=== PATIENT | female | born 1955 | race Caucasian/White ===

== ENCOUNTER 2022-07-11 10:46 | Inpatient (IN) ==
[2022-07-11 10:51] VITALS: BMI 46.7
--- NOTE | 2022-07-11 11:10 | DR.GENAD ---
HPI Time Seen Time Seen by Provider: 07/11/22 11:10 PCP Primary Care Physician: SERA PEREZ Complaint/Symptoms Chief Complaint:: PT. STATES SHE FELT LIKE HER HEART WAS "FLIP FLOPPING" AND IT WOKE HER UP FROM SLEEP. PT. STATES SHE JUST DOES NOT FEEL GOOD. 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 COVID-19 Coronavirus risk:travel/contact w/high risk person: No Has patient experienced Coronavirus symptoms: No Source History Provided: Patient Mode of Arrival Mode of Arrival: Ambulatory Timing Onset of Chief Complaint: 07/11/22 PMH PMH Past Medical History: Yes Past Medical History: CHF, Hypertension and Kidney Stones Past Surgical History: Yes Surgical History: Cholecystectomy and Tonsillectomy Family History History of Family Medical Conditions: Yes Family Medical History: Diabetes Mellitus, [place], Coronary Artery Disease and Hypertension Social History Does patient currently use any type of tobacco product: Yes Have you used tobacco products in the last 12 months: Yes Type of Tobacco Use: Cigarettes Does any household member use tobacco: No Alcohol Use: None Do you use any recreational Drugs:: No Lives With: Alone Lives Where: Home Travel Risk Coronavirus risk:travel/contact w/high risk person: No Has patient experienced Coronavirus symptoms: No Infectious screening In the last 2 months have you had wt loss of >10#?: NO Have you had fever, night sweats or hemotysis?: No Have you traveled outside the country in the last 6 months?: No Isolation: Standard PE Vital Signs Vitals: Temperature 97.6 F Pulse Rate 61 Respiratory Rate 39 Blood Pressure [Left Arm] 174/77 Blood Pressure 159/67 O2 Sat by Pulse Oximetry 93 ROR Labs Reviewed Result Diagrams: 07/11/22 11:49 07/11/22 11:49 Laboratory: WBC 9.2 X10^3/uL (3.6-10.0) 07/11/22 11:49 RBC 4.45 X10^6/uL (3.5-5.4) 07/11/22 11:49 Hgb 12.9 g/dL (12.0-16.0) 07/11/22 11:49 Hct 38.7 % (36.0-47.0) 07/11/22 11:49 MCV 86.9 fL (80.0-100.0) 07/11/22 11:49 MCH 29.0 pg (27.0-34.0) 07/11/22 11:49 MCHC 33.3 g/dL (33.0-35.0) 07/11/22 11:49 RDW 18.5 % (11.6-16.5) H 07/11/22 11:49 Plt Count 244 X10^3/uL (150.0-450.0) 07/11/22 11:49 MPV 7.6 fL (7.4-11.0) 07/11/22 11:49 Neut % (Auto) 78.7 % (42.0-75.0) H 07/11/22 11:49 Lymph % (Auto) 14.3 % (21.0-51.0) L 07/11/22 11:49 [place] % (Auto) 5.6 % (0.0-13.0) 07/11/22 11:49 Eos % (Auto) 0.9 % (0.9-2.9) 07/11/22 11:49 Baso % (Auto) 0.5 % (0.2-1.0) 07/11/22 11:49 Neut # (Auto) 7.2 x10^3/uL (2.2-4.8) H 07/11/22 11:49 Lymph # (Auto) 1.3 X10^3/uL (1.3-2.9) 07/11/22 11:49 [place] # (Auto) 0.5 x10^3/uL (0.3-0.8) 07/11/22 11:49 Eos # (Auto) 0.1 x10^3/uL (0.0-0.2) 07/11/22 11:49 Baso # (Auto) 0.0 X10^3/uL (0.0-0.1) 07/11/22 11:49 Absolute Nucleated RBC 0.0 /100WBC 07/11/22 11:49 D-Dimer 0.55 ug/ml (0.0-0.57) 07/11/22 11:49 Sodium 141 mmol/L (136-145) 07/11/22 11:49 Corrected Sodium TNP 07/11/22 11:49 Potassium 4.0 mmol/L (3.5-5.1) 07/11/22 11:49 Chloride 106 mmol/L (98-107) 07/11/22 11:49 Carbon Dioxide 25.0 mmol/L (21-32) 07/11/22 11:49 BUN 10 mg/dL (7-18) 07/11/22 11:49 Creatinine 0.91 mg/dL (0.55-1.02) 07/11/22 11:49 Est GFR (MDRD) Af Amer > 60 (>60) 07/11/22 11:49 Est GFR (MDRD) Non-Af > 60 (>60) 07/11/22 11:49 Glucose 99 mg/dL (65-99) 07/11/22 11:49 Calcium 8.0 mg/dL (8.5-10.1) L 07/11/22 11:49 Corrected Calcium 8.6 mg/dL (8.5-10.1) 07/11/22 11:49 Total Bilirubin 0.40 mg/dL (0.2-1.0) 07/11/22 11:49 AST 13 Units/L (15-37) L 07/11/22 11:49 ALT 13 Units/L (12-78) 07/11/22 11:49 Alkaline Phosphatase 88 Units/L (46-116) 07/11/22 11:49 Creatine Kinase 245 Units/L (26-192) H 07/11/22 14:46 Troponin I High Sens 73.8 ng/L (4.0-60.0) H* 07/11/22 14:46 Total Protein 7.9 g/dL (6.4-8.2) 07/11/22 11:49 Albumin 3.3 g/dL (3.4-5.0) L 07/11/22 11:49 Globulin 4.6 g/dL (2.5-4.5) H 07/11/22 11:49 Albumin/Globulin Ratio 0.7 Ratio (1.1-2.1) L 07/11/22 11:49 Specimen Type Clean catch urine 07/11/22 11:05 Urine Color Yellow (YELLOW) 07/11/22 11:05 Urine Appearance Clear (CLEAR) 07/11/22 11:05 Urine pH 7.0 (5.0 - 8.0) 07/11/22 11:05 Ur Specific [place] 1.010 (1.000-1.030) 07/11/22 11:05 Urine Protein Negative (NEGATIVE) 07/11/22 11:05 Urine Glucose (UA) Negative (NEGATIVE) 07/11/22 11:05 Urine Ketones Negative (NEGATIVE) 07/11/22 11:05 Urine Blood Negative (NEGATIVE) 07/11/22 11:05 Urine Nitrite Negative (NEGATIVE) 07/11/22 11:05 Urine Bilirubin Negative (NEGATIVE) 07/11/22 11:05 Urine Urobilinogen Normal (NORMAL) 07/11/22 11:05 Ur Leukocyte Esterase 2+ (NEGATIVE) 07/11/22 11:05 Urine RBC 0-2 /HPF (0-3) 07/11/22 11:05 Urine WBC 3-5 /HPF (0-5) 07/11/22 11:05 Ur Squamous Epith Cells Rare /HPF (NEGATIVE) 07/11/22 11:05 Urine Bacteria Trace /HPF (NEGATIVE) 07/11/22 11:05 Ur Culture Indicated? No/not indicated 07/11/22 11:05 SARS-CoV-2 (PCR) Negative (NEGATIVE) 07/11/22 17:51 Influenza Type A (PCR) Negative (NEGATIVE) 07/11/22 17:51 Influenza Type B (PCR) Negative (NEGATIVE) 07/11/22 17:51 RSV (PCR) Negative (NEGATIVE) 07/11/22 17:51 Opioid Opioid Risk Tool Age (Italo box if 16-45): No History of Preadolescent Sexual Abuse: No Total: 0 Total Score Risk Category: Low Risk Copyright: Aki GATICA predicting aberrant behaviors Discharge Plan Diagnosis Discharge Problem: Elevated troponin, Atrial fibrillation, new onset, Generalized weakness Discharge Plan Patient Disposition: ADMITTED INPATIENT Condition: Stable Prescriptions: No Action clonidine HCl 0.1 mg tablet 0.1 mg PO TID PRN (Reason: hypertensive emergency) Qty: 30 0RF Rx Instructions: sbp >= 180 and/or dbp >=100 furosemide [Lasix] 40 mg Tablet 20 mg PO DAILY losartan 100 mg Tablet 100 mg PO DAILY aspirin 325 mg Tablet 325 mg PO DAILY lorazepam 0.5 mg Tablet 0.5 mg PO BID PRN (Reason: Anxiety) nifedipine 30 mg Tablet Extended Release 30 mg PO DAILY hydralazine 50 mg Tablet 50 mg PO BID guanfacine 2 mg Tablet 1 mg PO DAILY Rx Instructions: IN AM guanfacine 2 mg Tablet 2 mg PO HS carvedilol phosphate [Coreg CR] 10 mg Capsule, Er Multiphase 24 Hr 10 mg PO QAM Qty: 30 0RF Rx Instructions: must administer with a meal/food ciprofloxacin HCl [Cipro] 250 mg Tablet 250 mg PO Q12H Qty: 14 0RF Health Concerns: Post Hospitalization: new medications and changes needed to prevent readmission or further decline. Pt educated and given instructions on all concerns. Plan of Treatment: Continue with present treatment and follow up plan. Pt is to keep follow up appointment as instructed and take medications as ordered. Orders to Discharge Patient Discharge Orders: Transfer (Routine); Ordered 07/11/22 Ordered By: DRE WOOTEN Follow ups/Referrals Follow ups/Referrals: JARVIS FERNANDES [Primary Care Provider] - 3 days Instructions Stand Alone Forms: Precautions for COVID, [facility], Patient Portal, Soci al Distancing
[2022-07-11 11:32] LABS: BILIRUBIN,URINE NEGATIVE (NEGATIVE); BLOOD/HEMOGLOBIN,URINE NEGATIVE (NEGATIVE); GLUCOSE, URINE NEGATIVE (NEGATIVE); KETONES,URINE NEGATIVE (NEGATIVE); LEUKOCYTE ESTERASE ,URINE 2+ (NEGATIVE); NITRITES,URINE NEGATIVE (NEGATIVE); PROTEIN,URINE NEGATIVE (NEGATIVE); UROBILINOGEN,URINE NORMAL (NORMAL)
[2022-07-11 11:50] LABS: APPEARANCE,URINE CLEAR (CLEAR); BACTERIA,URINE TRACE /HPF (NEGATIVE); COLOR,URINE YELLOW (YELLOW); RBC,URINE 0-2 /HPF (0-3); SQUAMOUS EPITHELIAL CELL,UR RARE /HPF (NEGATIVE)
[2022-07-11 12:08] LABS: BASOPHILS % (AUTO) 0.5 % (0.2-1.0); EOSINOPHILS # (AUTO) 0.1 x10^3/uL (0.0-0.2); EOSINOPHILS % (AUTO) 0.9 % (0.9-2.9); HEMATOCRIT 38.7 % (36.0-47.0); HEMOGLOBIN 12.9 g/dL (12.0-16.0); LYMPHOCYTES # (AUTO) 1.3 X10^3/uL (1.3-2.9); LYMPHOCYTES % (AUTO) 14.3 % (21.0-51.0); MEAN CORPUSCULAR HGB CONC 33.3 g/dL (33.0-35.0); MEAN CORPUSCULAR VOLUME 86.9 fL (80.0-100.0); MEAN PLATELET VOLUME 7.6 fL (7.4-11.0); MONOCYTES # (AUTO) 0.5 x10^3/uL (0.3-0.8); MONOCYTES % (AUTO) 5.6 % (0.0-13.0); NEUTROPHILS # (AUTO) 7.2 x10^3/uL (2.2-4.8); NEUTROPHILS % (AUTO) 78.7 % (42.0-75.0); RED BLOOD COUNT 4.45 X10^6/uL (3.5-5.4); RED CELL DISTRIBUTION WIDTH 18.5 % (11.6-16.5); WHITE BLOOD COUNT 9.2 X10^3/uL (3.6-10.0)
[2022-07-11 12:32] LABS: ALANINE AMINOTRANSFERASE 13 Units/L (12-78); ALBUMIN 3.3 g/dL (3.4-5.0); ALKALINE PHOSPHATASE 88 Units/L (46-116); ASPARTATE AMINO TRANSFERASE 13 Units/L (15-37); BLOOD UREA NITROGEN 10 mg/dL (7-18); CHLORIDE 106 mmol/L (98-107); COR CA(FOR HYPOALB) 8.6 mg/dL (8.5-10.1); CREATINE KINASE 105 Units/L (26-192); CREATININE 0.91 mg/dL (0.55-1.02); SODIUM 141 mmol/L (136-145); TOTAL PROTEIN 7.9 g/dL (6.4-8.2); eGFR NON BLACK RACES > 60 (>60)
[2022-07-11] MEDS ORDERED: CATAPRES TAB 0.2 MG PO ONE (13:13)
[2022-07-11] MEDS ORDERED: CATAPRES TAB 0.2 MG ONE (13:16)
[2022-07-11] MEDS ORDERED: TYLENOL 500 MG TAB EXTRA STRENGTH PO ONE (14:05)
--- NOTE | 2022-07-11 14:45 | RAD ---
HISTORYPalpitationsSTUDYAP chestCOMPARISONDecember 2018FINDINGSCardiomegaly with clear lungs and pleural spaces. There is no evidence for pneumonia, pulmonary edema, pleural effusion or other acute process.IMPRESSIONCardiomegaly.Electronically signed by: SLY MIRANDA (Jul 11, 2022 14:44:14)
[2022-07-11] MEDS ORDERED: ATIVAN TAB 0.5 MG PO ONE (17:34)
[2022-07-11] MEDS ORDERED: ATIVAN TAB 0.5 MG ONE (17:35)
[2022-07-11] MEDS: APRESOLINE TAB 25 MG PO SCH (21:45)
[2022-07-11] MEDS: NS 1,000 ML IV 1,000 ML IV SCH (22:32)
[2022-07-12 05:38] LABS: BASOPHILS % (AUTO) 0.5 % (0.2-1.0); EOSINOPHILS # (AUTO) 0.1 x10^3/uL (0.0-0.2); EOSINOPHILS % (AUTO) 1.1 % (0.9-2.9); HEMATOCRIT 35.6 % (36.0-47.0); HEMOGLOBIN 11.9 g/dL (12.0-16.0); LYMPHOCYTES # (AUTO) 1.9 X10^3/uL (1.3-2.9); LYMPHOCYTES % (AUTO) 24.9 % (21.0-51.0); MEAN CORPUSCULAR HEMOGLOBIN 28.9 pg (27.0-34.0); MEAN CORPUSCULAR HGB CONC 33.3 g/dL (33.0-35.0); MEAN CORPUSCULAR VOLUME 86.7 fL (80.0-100.0); MEAN PLATELET VOLUME 7.8 fL (7.4-11.0); MONOCYTES # (AUTO) 0.4 x10^3/uL (0.3-0.8); MONOCYTES % (AUTO) 5.8 % (0.0-13.0); NEUTROPHILS # (AUTO) 5.2 x10^3/uL (2.2-4.8); NEUTROPHILS % (AUTO) 67.7 % (42.0-75.0); RED BLOOD COUNT 4.11 X10^6/uL (3.5-5.4); RED CELL DISTRIBUTION WIDTH 18.1 % (11.6-16.5); WHITE BLOOD COUNT 7.7 X10^3/uL (3.6-10.0)
[2022-07-12 06:04] LABS: ALANINE AMINOTRANSFERASE 10 Units/L (12-78); ALKALINE PHOSPHATASE 74 Units/L (46-116); ASPARTATE AMINO TRANSFERASE 12 Units/L (15-37); BLOOD UREA NITROGEN 11 mg/dL (7-18); CALCIUM 7.8 mg/dL (8.5-10.1); CHLORIDE 106 mmol/L (98-107); COR CA(FOR HYPOALB) 8.6 mg/dL (8.5-10.1); CREATINE KINASE 68 Units/L (26-192); CREATININE 0.79 mg/dL (0.55-1.02); MAGNESIUM 1.7 mg/dL (1.7-2.9); SODIUM 142 mmol/L (136-145); TOTAL PROTEIN 7.1 g/dL (6.4-8.2); eGFR NON BLACK RACES > 60 (>60)
[2022-07-12] MEDS ORDERED: POTASSIUM CHL 40 MEQ/NS 0.45% 500 ML IV PRN (07:07)
[2022-07-12] MEDS ORDERED: K-RIDER 10 MEQ/NS 100 ML 10 MEQ/100 ML BAG IV PRN (07:07)
[2022-07-12] MEDS ORDERED: KLOR-CON PO PRN (07:07)
[2022-07-12] MEDS ORDERED: MICRO K EXTEN CAP 10 MEQ PO PRN (07:07)
[2022-07-12] MEDS ORDERED: POTASSIUM CHL 60 MEQ/NS 0.45% 500 ML IV PRN (07:07)
[2022-07-12] MEDS ORDERED: K-DUR TAB 20 MEQ PO PRN (07:07)
[2022-07-12] MEDS ORDERED: POTASSIUM CHLORIDE LIQ 20 MEQ UDC PO PRN (07:07)
[2022-07-12] MEDS: APRESOLINE TAB 25 MG PO SCH ×2 (08:16→20:54)
[2022-07-12] MEDS: MAGNESIUM SULFATE 1 GRAM/100 mL PREMIX 1 G/100 ML BAG IV PRN ×2 (08:17→09:57)
[2022-07-12] MEDS: COZAAR PO SCH (08:17)
[2022-07-12] MEDS: ASPIRIN PO SCH (08:17)
[2022-07-12] MEDS: NS 1,000 ML IV 1,000 ML IV SCH ×2 (10:43→22:28)
--- NOTE | 2022-07-12 14:47 | DR.H&P ---
H&P - History & Physical for Day of: H&P Date: 07/11/22 - Chief Complaint Chief Complaint: HEART RACING - History of Present Illness History of Present Illness: PT IS 67 WF ER ADMISSION WITH CO WOKE UP WITH HEART PALPITAIONS AND "DID NOT FEEL RIGHT". PT HAD EKG EARLY ON ER ARRIVAL WITH AFIB WITH RVR, CONVERTING WITH SINUS RHYTHM. PT HAD ELEVATED CARDIAC ENZYMES ON ADMISSION LABS. PT DOES REPORT HX OF HYPERTENSION AND DAILY SMOKER. PT STATES SHE HAD NEVER HAD TO HAVE STRESS TEST, ECHO OR CARDIAC CATH. PT REPORTS SIMILAR EPISODE IN 2019 AFTER HAVING COVID. PT ADMITTED FOR TREATMENT AND EVALUATION OF ACUTE ILLNESS. - Past Medical History Past Medical History: Hypertension, Kidney Stones, CHF - Past Surgical History Surgical History: Cholecystectomy, CLIENT SUPPORT PROFESSIONAL Surgery, Tonsillectomy, Lithotripsy, Other - Family History Family Medical History: Diabetes Mellitus, [place], Coronary Artery Disease, Hypertension - Social History Does patient currently use any type of tobacco product: Yes Have you used tobacco products in the last 12 months: Yes Type of Tobacco Use: Cigarettes How many years tobacco product used: 43 Does any household member use tobacco: No Alcohol Use: None Drug Use: None - Medications Home Medications: amoxicillin Allergy (Verified 07/11/22 10:51) dicyclomine [From Bentyl] Allergy (Verified 07/11/22 10:51) indomethacin [From Indocin] Allergy (Verified 07/11/22 10:51) ketorolac [From Toradol] Allergy (Verified 07/11/22 10:51) - Review of Systems Constitutional: Malaise. denies: Fever Eyes: No Symptoms Reported ENT: No Symptoms Reported Respiratory: SOB with Excertion Cardiovascular: Palpitations. denies: Edema Gastrointestinal: No Symptoms Reported Genitourinary: No Symptoms Reported Musculoskeletal: No Symptoms Reported Skin: No Symptoms Reported Neurological: No Symptoms Reported - Physical Exam Vital Signs: Temperature 97.9 F Pulse Rate [Left Brachial] 60 Pulse Rate 56 Respiratory Rate 20 Blood Pressure [Left Arm] 140/81 Blood Pressure 158/74 O2 Sat by Pulse Oximetry 97 Oriented: Normal Eyes: Normal Ear: Normal Nose: Normal Throat: Normal Respiratory: Wheezes Throughout (MILD LOWER EXP WHEEZES TO BILATERAL LUNG ), RLL Diminished, LLL Diminished Cardiovascular: Normal : Normal Auscultation: Bowel Sounds: Normal Palpation: Normal Tenderness: Normal Skin: Normal Musculoskeletal: Normal Psychiatric: Normal Mood Description: Calm Speech Pattern: Clear, Appropriate - Assessment/Plan (1) Abnormal cardiac enzyme level Status: Acute Plan: ADMIT, SERIAL CE AND EKG. BP CONTROL, I &OS, CXR ON ADMISSION. VERIFY HOME MEDICATION. PRN SUPPLEMENTAL O2 (2) A-fib Qualifiers: Atrial fibrillation type: paroxysmal Qualified Code(s): I48.0 - Paroxysmal atrial fibrillation Status: Acute (3) Hypertension Qualifiers: Hypertension type: essential hypertension Qualified Code(s): I10 - Essential (primary) hypertension Status: Acute - Allergies Allergies/Adverse Reactions: Allergies Allergy/AdvReac Type Severity Reaction Status Date / Time amoxicillin Allergy Verified 07/11/22 10:51 dicyclomine [From Bentyl] Allergy Verified 07/11/22 10:51 indomethacin [From Indocin] Allergy Verified 07/11/22 10:51 ketorolac [From Toradol] Allergy Verified 07/11/22 10:51
--- NOTE | 2022-07-12 14:55 | PCM.PROG ---
Progress Note - Progress Note for Day of Date of Exam: 07/12/22 - Subjective Subjective: PT IS 67WF ER ADMISSION WITH AFIB WITH RVR, CURRENTLY IN SINUS RHYTHM AFTER SPONTANEOUSLY CONVERTING. PT HAD ELEVATED TROPONIN ENZYME LEVELS ON ADMISSION. SERIAL EKG AND CARDIAC ENZYMES OBTAINED SINCE ADMISSION WITH TRENDING DOWN TROPONIN LEVELS. PT DENIES ANY CHEST PAIN. PT DENIES ANY SOB OR PALPITAION SINCE ADMISSION FROM ER. PT BP 134/71, HR 60. NORMAL RENAL FUNCTION ON CMP. PLAN TO OBTAIN AM ECHO AND CONTINUE CE LEVELS. BP CONTROL CONTINUED. WILL OBTAIN TSH, FREET4 AND FASTING LIPID. - Past Medical Family Social History Past Med/Fam/Surg Hx: No changes since H&P Allergies: Allergies amoxicillin Allergy (Verified 07/11/22 10:51) dicyclomine [From Bentyl] Allergy (Verified 07/11/22 10:51) indomethacin [From Indocin] Allergy (Verified 07/11/22 10:51) ketorolac [From Toradol] Allergy (Verified 07/11/22 10:51) - Review of Systems ROS: No change since H&P - Vital Signs and I&O's Vital Signs: Temperature 97.9 F Pulse Rate [Left Brachial] 60 Pulse Rate 56 Respiratory Rate 20 Blood Pressure [Left Arm] 140/81 Blood Pressure 158/74 O2 Sat by Pulse Oximetry 97 Intake and Output: Intake & Output 07/10/22 07/11/22 07/12/22 07/13/22 11:59 11:59 11:59 11:59 Intake Total 751 / 751 Balance 751 / 751 - Physical Exam Oriented: Normal Eyes: Normal Ear: Normal Nose: Normal Throat: Normal Respiratory: Diminished, Wheezes Cardiovascular: Normal : Normal Auscultation: Bowel Sounds: Normal Tenderness: Normal Skin: Normal Musculoskeletal: Normal Psychiatric: Normal Mood Description: Calm Speech Pattern: Clear, Appropriate - Laboratory and Diagnostics Result Diagrams: 07/12/22 04:57 07/12/22 04:57 Labs: Laboratory WBC 7.7 X10^3/uL (3.6-10.0) 07/12/22 04:57 RBC 4.11 X10^6/uL (3.5-5.4) 07/12/22 04:57 Hgb 11.9 g/dL (12.0-16.0) L 07/12/22 04:57 Hct 35.6 % (36.0-47.0) L 07/12/22 04:57 MCV 86.7 fL (80.0-100.0) 07/12/22 04:57 MCH 28.9 pg (27.0-34.0) 07/12/22 04:57 MCHC 33.3 g/dL (33.0-35.0) 07/12/22 04:57 RDW 18.1 % (11.6-16.5) H 07/12/22 04:57 Plt Count 208 X10^3/uL (150.0-450.0) 07/12/22 04:57 MPV 7.8 fL (7.4-11.0) 07/12/22 04:57 Neut % (Auto) 67.7 % (42.0-75.0) 07/12/22 04:57 Lymph % (Auto) 24.9 % (21.0-51.0) 07/12/22 04:57 [place] % (Auto) 5.8 % (0.0-13.0) 07/12/22 04:57 Eos % (Auto) 1.1 % (0.9-2.9) 07/12/22 04:57 Baso % (Auto) 0.5 % (0.2-1.0) 07/12/22 04:57 Neut # (Auto) 5.2 x10^3/uL (2.2-4.8) H 07/12/22 04:57 Lymph # (Auto) 1.9 X10^3/uL (1.3-2.9) 07/12/22 04:57 [place] # (Auto) 0.4 x10^3/uL (0.3-0.8) 07/12/22 04:57 Eos # (Auto) 0.1 x10^3/uL (0.0-0.2) 07/12/22 04:57 Baso # (Auto) 0.0 X10^3/uL (0.0-0.1) 07/12/22 04:57 Absolute Nucleated RBC 0.0 /100WBC 07/12/22 04:57 D-Dimer 0.55 ug/ml (0.0-0.57) 07/11/22 11:49 Sodium 142 mmol/L (136-145) 07/12/22 04:57 Corrected Sodium TNP 07/12/22 04:57 Potassium 3.9 mmol/L (3.5-5.1) 07/12/22 04:57 Chloride 106 mmol/L (98-107) 07/12/22 04:57 Carbon Dioxide 27.0 mmol/L (21-32) 07/12/22 04:57 BUN 11 mg/dL (7-18) 07/12/22 04:57 Creatinine 0.79 mg/dL (0.55-1.02) 07/12/22 04:57 Est GFR (MDRD) Af Amer > 60 (>60) 07/12/22 04:57 Est GFR (MDRD) Non-Af > 60 (>60) 07/12/22 04:57 Glucose 102 mg/dL (65-99) H 07/12/22 04:57 Calcium 7.8 mg/dL (8.5-10.1) L 07/12/22 04:57 Corrected Calcium 8.6 mg/dL (8.5-10.1) 07/12/22 04:57 Magnesium 1.7 mg/dL (1.7-2.9) 07/12/22 04:57 Total Bilirubin 0.50 mg/dL (0.2-1.0) 07/12/22 04:57 AST 12 Units/L (15-37) L 07/12/22 04:57 ALT 10 Units/L (12-78) L 07/12/22 04:57 Alkaline Phosphatase 74 Units/L (46-116) 07/12/22 04:57 Creatine Kinase 68 Units/L (26-192) 07/12/22 04:57 Troponin I High Sens 70.1 ng/L (4.0-60.0) H* 07/12/22 04:57 Total Protein 7.1 g/dL (6.4-8.2) 07/12/22 04:57 Albumin 3.0 g/dL (3.4-5.0) L 07/12/22 04:57 Globulin 4.1 g/dL (2.5-4.5) 07/12/22 04:57 Albumin/Globulin Ratio 0.7 Ratio (1.1-2.1) L 07/12/22 04:57 Specimen Type Clean catch urine 07/11/22 11:05 Urine Color Yellow (YELLOW) 07/11/22 11:05 Urine Appearance Clear (CLEAR) 07/11/22 11:05 Urine pH 7.0 (5.0 - 8.0) 07/11/22 11:05 Ur Specific [place] 1.010 (1.000-1.030) 07/11/22 11:05 Urine Protein Negative (NEGATIVE) 07/11/22 11:05 Urine Glucose (UA) Negative (NEGATIVE) 07/11/22 11:05 Urine Ketones Negative (NEGATIVE) 07/11/22 11:05 Urine Blood Negative (NEGATIVE) 07/11/22 11:05 Urine Nitrite Negative (NEGATIVE) 07/11/22 11:05 Urine Bilirubin Negative (NEGATIVE) 07/11/22 11:05 Urine Urobilinogen Normal (NORMAL) 07/11/22 11:05 Ur Leukocyte Esterase 2+ (NEGATIVE) 07/11/22 11:05 Urine RBC 0-2 /HPF (0-3) 07/11/22 11:05 Urine WBC 3-5 /HPF (0-5) 07/11/22 11:05 Ur Squamous Epith Cells Rare /HPF (NEGATIVE) 07/11/22 11:05 Urine Bacteria Trace /HPF (NEGATIVE) 07/11/22 11:05 Ur Culture Indicated? No/not indicated 07/11/22 11:05 SARS-CoV-2 (PCR) Negative (NEGATIVE) 07/11/22 17:51 Influenza Type A (PCR) Negative (NEGATIVE) 07/11/22 17:51 Influenza Type B (PCR) Negative (NEGATIVE) 07/11/22 17:51 RSV (PCR) Negative (NEGATIVE) 07/11/22 17:51 - Plan (1) Abnormal cardiac enzyme level Status: Acute Plan: SERIAL CE AND EKG, AM ECHO. BP CONTROL, I &OS, CXR ON ADMISSION. VERIFY HOME MEDICATION. PRN SUPPLEMENTAL O2 (2) A-fib Status: Acute Qualifiers: Atrial fibrillation type: paroxysmal Qualified Code(s): I48.0 - Paroxysmal atrial fibrillation (3) Hypertension Status: Acute Qualifiers: Hypertension type: essential hypertension Qualified Code(s): I10 - Essential (primary) hypertension
[2022-07-12 15:18] LABS: TSH (3RD GENERATION) 3.225 uIU/mL (0.358-3.74)
[2022-07-12] MEDS ORDERED: CATAPRES TAB 0.1 MG PO ONE (18:10)
[2022-07-12] MEDS: ZOFRAN INJ 4 MG VIAL IVP PRN (18:27)
[2022-07-12] MEDS: ATIVAN TAB 0.5 MG PO PRN (20:54)
[2022-07-13 05:43] LABS: BASOPHILS % (AUTO) 0.2 % (0.2-1.0); EOSINOPHILS # (AUTO) 0.1 x10^3/uL (0.0-0.2); HEMATOCRIT 35.3 % (36.0-47.0); HEMOGLOBIN 11.7 g/dL (12.0-16.0); LYMPHOCYTES # (AUTO) 1.9 X10^3/uL (1.3-2.9); LYMPHOCYTES % (AUTO) 25.4 % (21.0-51.0); MEAN CORPUSCULAR VOLUME 87.7 fL (80.0-100.0); MEAN PLATELET VOLUME 7.7 fL (7.4-11.0); MONOCYTES # (AUTO) 0.5 x10^3/uL (0.3-0.8); MONOCYTES % (AUTO) 6.5 % (0.0-13.0); NEUTROPHILS % (AUTO) 66.9 % (42.0-75.0); RED BLOOD COUNT 4.02 X10^6/uL (3.5-5.4); RED CELL DISTRIBUTION WIDTH 18.3 % (11.6-16.5); WHITE BLOOD COUNT 7.4 X10^3/uL (3.6-10.0)
[2022-07-13 06:06] LABS: ALANINE AMINOTRANSFERASE 13 Units/L (12-78); ALKALINE PHOSPHATASE 76 Units/L (46-116); ASPARTATE AMINO TRANSFERASE 9 Units/L (15-37); BLOOD UREA NITROGEN 14 mg/dL (7-18); CALCIUM 7.9 mg/dL (8.5-10.1); CARBON DIOXIDE 28.5 mmol/L (21-32); CHLORIDE 106 mmol/L (98-107); CHOLESTEROL 124 mg/dL (0-200); COR CA(FOR HYPOALB) 8.7 mg/dL (8.5-10.1); CREATININE 0.81 mg/dL (0.55-1.02); HDL CHOLESTEROL 31 mg/dL (40-60); MAGNESIUM 1.9 mg/dL (1.7-2.9); SODIUM 140 mmol/L (136-145); TOTAL PROTEIN 7.3 g/dL (6.4-8.2); TRIGLYCERIDES 157 mg/dL (0-150); eGFR NON BLACK RACES > 60 (>60)
[2022-07-13] MEDS: MAGNESIUM SULFATE 1 GRAM/100 mL PREMIX 1 G/100 ML BAG IV PRN ×2 (06:22→08:43)
[2022-07-13] MEDS: ASPIRIN PO SCH (08:43)
[2022-07-13] MEDS: APRESOLINE TAB 25 MG PO SCH ×4 (08:43→21:22)
[2022-07-13] MEDS: COZAAR PO SCH (08:43)
[2022-07-13] MEDS ORDERED: LOVENOX INJ 40 MG SYR SC SCH (10:00)
[2022-07-13] MEDS: NS 1,000 ML IV 1,000 ML IV SCH ×2 (13:03→21:23)
--- NOTE | 2022-07-13 15:38 | PCM.PROG ---
Progress Note Progress Note for Day of Date of Exam: 07/13/22 Subjective Subjective: PT IS 67 YEAR OLD FEMALE PAST MEDICAL HISTORY OF HYPERTENSION, ANXIETY, ADMITTED FOR ATRIAL FIBRILLATION WITH RVR. THIS MORNING SHE IS FEELING BETTER. NO ACUTE EVENTS OVERNIGHT. LABS/IMAGING: WBC 7.4, HGB 11.7, PLT 198, NA 140, K 4.2, CREATININE 0.81, GLUCOSE 101, SHE DID SPONTANEIOUSLY CONVERT BACK TO SINUS RHYTHM YESTERDAY. SUSPECT SHE HAS PAROXYSMAL ATRIAL FIBRILLATION SHE STATES THIS HAS HAPPENED BEFORE IN THE PAST BUT SHE DID NOT FOLLOW UP WITH CARDIOLOGY. PT DID HAVE SLIGHT ELEVATION IN TROPONIN ENZYME LEVELS ON ADMISSION, TRENDED DOWN AND LIKELY DUE TO HEART STRAIN BUT WILL NEED FULL CARDIAC WORKUP OUTPATIENT. PT DENIES ANY CHEST PAIN, SHORTNESS OF BREATH, OR PALPITATION SINCE ADMISSION FROM ER. ECHO HAS BEEN ORDERED AND WILL BE DONE TOMORROW. WILL RESTART HOME MEDICATIONS AND ADD ELIQUIS 5MG BID. CONTINUE TO CLOSELY MONITOR AND FOLLOW UP LABS/IMAGING. Past Medical Family Social History Past Med/Fam/Surg Hx: No changes since H&P Allergies: Allergies amoxicillin Allergy (Verified 07/11/22 10:51) dicyclomine [From Bentyl] Allergy (Verified 07/11/22 10:51) indomethacin [From Indocin] Allergy (Verified 07/11/22 10:51) ketorolac [From Toradol] Allergy (Verified 07/11/22 10:51) Review of Systems ROS: No change since H&P ROS changes noted: SEE HPI Vital Signs and I&O's Vital Signs: Temperature 98.0 F Pulse Rate [Left Brachial] 60 Pulse Rate 56 Respiratory Rate 20 Blood Pressure [Right Arm] 179/70 Blood Pressure [Left Arm] 129/63 Blood Pressure 158/74 O2 Sat by Pulse Oximetry 96 Intake and Output: Intake & Output 07/10/22 07/11/22 07/12/22 07/13/22 23:59 23:59 23:59 23:59 Intake Total 2019 800 / 800 Balance 2019 800 / 800 Physical Exam Oriented: Normal Eyes: Normal Ear: Normal Nose: Normal Throat: Normal Respiratory: Diminished Cardiovascular: Normal : Normal Auscultation: Bowel Sounds: Normal Tenderness: Normal Skin: Normal Musculoskeletal: Normal Psychiatric: Normal Mood Description: Calm Speech Pattern: Clear Laboratory and Diagnostics Result Diagrams: 07/13/22 05:17 07/13/22 05:17 Labs: Laboratory WBC 7.4 X10^3/uL (3.6-10.0) 07/13/22 05:17 RBC 4.02 X10^6/uL (3.5-5.4) 07/13/22 05:17 Hgb 11.7 g/dL (12.0-16.0) L 07/13/22 05:17 Hct 35.3 % (36.0-47.0) L 07/13/22 05:17 MCV 87.7 fL (80.0-100.0) 07/13/22 05:17 MCH 29.0 pg (27.0-34.0) 07/13/22 05:17 MCHC 33.0 g/dL (33.0-35.0) 07/13/22 05:17 RDW 18.3 % (11.6-16.5) H 07/13/22 05:17 Plt Count 198 X10^3/uL (150.0-450.0) 07/13/22 05:17 MPV 7.7 fL (7.4-11.0) 07/13/22 05:17 Neut % (Auto) 66.9 % (42.0-75.0) 07/13/22 05:17 Lymph % (Auto) 25.4 % (21.0-51.0) 07/13/22 05:17 [place] % (Auto) 6.5 % (0.0-13.0) 07/13/22 05:17 Eos % (Auto) 1.0 % (0.9-2.9) 07/13/22 05:17 Baso % (Auto) 0.2 % (0.2-1.0) 07/13/22 05:17 Neut # (Auto) 5.0 x10^3/uL (2.2-4.8) H 07/13/22 05:17 Lymph # (Auto) 1.9 X10^3/uL (1.3-2.9) 07/13/22 05:17 [place] # (Auto) 0.5 x10^3/uL (0.3-0.8) 07/13/22 05:17 Eos # (Auto) 0.1 x10^3/uL (0.0-0.2) 07/13/22 05:17 Baso # (Auto) 0.0 X10^3/uL (0.0-0.1) 07/13/22 05:17 Absolute Nucleated RBC 0.1 /100WBC 07/13/22 05:17 D-Dimer 0.55 ug/ml (0.0-0.57) 07/11/22 11:49 Sodium 140 mmol/L (136-145) 07/13/22 05:17 Corrected Sodium TNP 07/13/22 05:17 Potassium 4.2 mmol/L (3.5-5.1) 07/13/22 05:17 Chloride 106 mmol/L (98-107) 07/13/22 05:17 Carbon Dioxide 28.5 mmol/L (21-32) 07/13/22 05:17 BUN 14 mg/dL (7-18) 07/13/22 05:17 Creatinine 0.81 mg/dL (0.55-1.02) 07/13/22 05:17 Est GFR (MDRD) Af Amer > 60 (>60) 07/13/22 05:17 Est GFR (MDRD) Non-Af > 60 (>60) 07/13/22 05:17 Glucose 101 mg/dL (65-99) H 07/13/22 05:17 Calcium 7.9 mg/dL (8.5-10.1) L 07/13/22 05:17 Corrected Calcium 8.7 mg/dL (8.5-10.1) 07/13/22 05:17 Magnesium 1.9 mg/dL (1.7-2.9) 07/13/22 05:17 Total Bilirubin 0.40 mg/dL (0.2-1.0) 07/13/22 05:17 AST 9 Units/L (15-37) L 07/13/22 05:17 ALT 13 Units/L (12-78) 07/13/22 05:17 Alkaline Phosphatase 76 Units/L (46-116) 07/13/22 05:17 Creatine Kinase 67 Units/L (26-192) 07/12/22 18:39 Troponin I High Sens 71.6 ng/L (4.0-60.0) H* 07/12/22 18:39 Total Protein 7.3 g/dL (6.4-8.2) 07/13/22 05:17 Albumin 3.0 g/dL (3.4-5.0) L 07/13/22 05:17 Globulin 4.3 g/dL (2.5-4.5) 07/13/22 05:17 Albumin/Globulin Ratio 0.7 Ratio (1.1-2.1) L 07/13/22 05:17 Triglycerides 157 mg/dL (0-150) H 07/13/22 05:17 Cholesterol 124 mg/dL (0-200) 07/13/22 05:17 LDL Cholesterol, Calc 62 mg/dL (0-100) 07/13/22 05:17 HDL Cholesterol 31 mg/dL (40-60) L 07/13/22 05:17 Cholesterol/HDL Ratio 4.0 (0.0-5.0) 07/13/22 05:17 Free T4 1.00 ng/dL (0.76-1.46) 07/12/22 04:57 TSH 3rd Generation 3.225 uIU/mL (0.358-3.74) 07/12/22 04:57 Specimen Type Clean catch urine 07/11/22 11:05 Urine Color Yellow (YELLOW) 07/11/22 11:05 Urine Appearance Clear (CLEAR) 07/11/22 11:05 Urine pH 7.0 (5.0 - 8.0) 07/11/22 11:05 Ur Specific [place] 1.010 (1.000-1.030) 07/11/22 11:05 Urine Protein Negative (NEGATIVE) 07/11/22 11:05 Urine Glucose (UA) Negative (NEGATIVE) 07/11/22 11:05 Urine Ketones Negative (NEGATIVE) 07/11/22 11:05 Urine Blood Negative (NEGATIVE) 07/11/22 11:05 Urine Nitrite Negative (NEGATIVE) 07/11/22 11:05 Urine Bilirubin Negative (NEGATIVE) 07/11/22 11:05 Urine Urobilinogen Normal (NORMAL) 07/11/22 11:05 Ur Leukocyte Esterase 2+ (NEGATIVE) 07/11/22 11:05 Urine RBC 0-2 /HPF (0-3) 07/11/22 11:05 Urine WBC 3-5 /HPF (0-5) 07/11/22 11:05 Ur Squamous Epith Cells Rare /HPF (NEGATIVE) 07/11/22 11:05 Urine Bacteria Trace /HPF (NEGATIVE) 07/11/22 11:05 Ur Culture Indicated? No/not indicated 07/11/22 11:05 SARS-CoV-2 (PCR) Negative (NEGATIVE) 07/11/22 17:51 Influenza Type A (PCR) Negative (NEGATIVE) 07/11/22 17:51 Influenza Type B (PCR) Negative (NEGATIVE) 07/11/22 17:51 RSV (PCR) Negative (NEGATIVE) 07/11/22 17:51 Plan (1) A-fib: Status: Acute Qualifiers: Atrial fibrillation type: paroxysmal Qualified Code(s): I48.0 - Paroxysmal atrial fibrillation Narrative Support Text: START ELIQUIS CONVERTED BACK TO NSR ECHO ORDERED (2) Abnormal cardiac enzyme level: Status: Acute (3) Hypertension: Status: Acute Qualifiers: Hypertension type: essential hypertension Qualified Code(s): I10 - Essential (primary) hypertension
[2022-07-13] MEDS ORDERED: CATAPRES TAB 0.1 MG PO ONE (17:19)
[2022-07-13] MEDS: COREG TAB 12.5 MG PO SCH (20:33)
[2022-07-13] MEDS: ATIVAN TAB 0.5 MG PO PRN (22:59)
[2022-07-14] MEDS: NS 1,000 ML IV 1,000 ML IV SCH (01:45)
[2022-07-14] MEDS: APRESOLINE TAB 25 MG PO SCH ×2 (05:15→14:30)
[2022-07-14 06:13] LABS: BASOPHILS % (AUTO) 0.3 % (0.2-1.0); EOSINOPHILS # (AUTO) 0.1 x10^3/uL (0.0-0.2); EOSINOPHILS % (AUTO) 0.8 % (0.9-2.9); HEMATOCRIT 35.2 % (36.0-47.0); HEMOGLOBIN 11.7 g/dL (12.0-16.0); LYMPHOCYTES # (AUTO) 1.6 X10^3/uL (1.3-2.9); LYMPHOCYTES % (AUTO) 22.3 % (21.0-51.0); MEAN CORPUSCULAR HEMOGLOBIN 28.9 pg (27.0-34.0); MEAN CORPUSCULAR HGB CONC 33.1 g/dL (33.0-35.0); MEAN CORPUSCULAR VOLUME 87.1 fL (80.0-100.0); MEAN PLATELET VOLUME 7.7 fL (7.4-11.0); MONOCYTES # (AUTO) 0.5 x10^3/uL (0.3-0.8); MONOCYTES % (AUTO) 6.8 % (0.0-13.0); NEUTROPHILS % (AUTO) 69.8 % (42.0-75.0); RED BLOOD COUNT 4.05 X10^6/uL (3.5-5.4); RED CELL DISTRIBUTION WIDTH 18.2 % (11.6-16.5); WHITE BLOOD COUNT 7.1 X10^3/uL (3.6-10.0)
[2022-07-14 06:35] LABS: ALANINE AMINOTRANSFERASE 14 Units/L (12-78); ALBUMIN 3.2 g/dL (3.4-5.0); ALKALINE PHOSPHATASE 78 Units/L (46-116); ASPARTATE AMINO TRANSFERASE 13 Units/L (15-37); BLOOD UREA NITROGEN 14 mg/dL (7-18); CARBON DIOXIDE 27.8 mmol/L (21-32); CHLORIDE 105 mmol/L (98-107); COR CA(FOR HYPOALB) 8.6 mg/dL (8.5-10.1); CREATININE 0.78 mg/dL (0.55-1.02); MAGNESIUM 1.8 mg/dL (1.7-2.9); SODIUM 140 mmol/L (136-145); TOTAL PROTEIN 7.5 g/dL (6.4-8.2); eGFR NON BLACK RACES > 60 (>60)
[2022-07-14] MEDS: ZOFRAN INJ 4 MG VIAL IVP PRN (07:40)
[2022-07-14] MEDS: ATIVAN TAB 0.5 MG PO PRN (08:09)
[2022-07-14] MEDS: COREG TAB 12.5 MG PO SCH (08:09)
[2022-07-14] MEDS: COZAAR PO SCH (08:10)
[2022-07-14] MEDS: MAGNESIUM SULFATE 1 GRAM/100 mL PREMIX 1 G/100 ML BAG IV PRN ×2 (08:10→09:55)
[2022-07-14] MEDS ORDERED: ELIQUIS PO SCH (09:00)
[2022-07-14] MEDS ORDERED: HEPARIN SODIUM IN D5W 25,000 UNITS/500 ML BAG IV PRN (14:29)
[2022-07-14] MEDS ORDERED: HEPARIN SODIUM INJ 5000 UNITS IVP STA (15:15)
[2022-07-14] MEDS ORDERED: APRESOLINE INJ 20 MG VIAL IVP PRN (15:50)
--- NOTE | 2022-07-14 16:14 | W.DIS.FURT ---
Summary of Discharge Discharge Summary of Date Date of Exam: 07/14/22 Admission Date Date of Admission: 07/11/22 Admission Diagnosis Patient Problems (Updated 07/12/22 @ 14:49 by HOMERO FUNEZ) A-fib (Acute) I48.91 Hypertension (Acute) I10 Elevated troponin (Acute) R77.8 Atrial fibrillation, new onset (Acute) I48.91 Generalized weakness (Acute) R53.1 Abnormal cardiac enzyme level (Acute) R74.8 Hospital Course: PT IS 67 YEAR OLD FEMALE PAST MEDICAL HISTORY OF HYPERTENSION, ANXIETY, ADMITTED FOR NEW ONSET ATRIAL FIBRILLATION WITH RVR. HER ATRIAL FIBRILLATION SPONTANEOUS CONVERTED BACK TO SINUS RHYTHM WHILE INPATIENT. HOWEVER, THIS MORNING SHE HAD EPISODE OF SHARP CHEST PAIN ALONG WITH FEW SECONDS OF VTACH THAT WAS MONITORED ON TELEMETRY THAT SPONTANEOUSLY RESOLVED. CARDIAC ENZYMES TROPONIN WAS ELEVATED AT 77 AND REPEAT SLIGHTLY TRENDING UP TO 79. PT WAS STARTED ON HEPARIN GTT. SHE CONTINUES TO COMPLAIN OF INTERMITTENT CHEST PAIN. DUE TO ANGINA AND NOW NSTEMI, PT WILL BE TRANSFERRED TO [facility] FOR HIGHER LEVEL CARE AND FURTHER CARDIAC EVALUATION AND WORKUP. Labs:Wbc 7.2, Hgb 11.7, Plt 201, Na 140, K 4.2, Creatinine 0.78, Glucose 88, Echo taken, read pending. Time spent on clinical assessment, reviewing labs and imaging, decision making, and documentation greater than 45 minutes. Vital Signs: Vital Signs (72 hours) 07/11/22 16:15 07/11/22 16:30 07/11/22 16:31 Temperature Pulse Rate 59 L 61 Pulse Rate [Left Brachial] Respiratory Rate Blood Pressure 148/72 Blood Pressure [Left Arm] Blood Pressure [Right Arm] O2 Sat by Pulse Oximetry 96 97 Oxygen Delivery Method Oxygen Flow Rate FIO2% 07/11/22 16:31 07/11/22 16:45 07/11/22 17:00 Temperature Pulse Rate 59 L 59 L 69 Pulse Rate [Left Brachial] Respiratory Rate Blood Pressure Blood Pressure [Left Arm] Blood Pressure [Right Arm] O2 Sat by Pulse Oximetry 98 97 97 Oxygen Delivery Method Oxygen Flow Rate FIO2% 07/11/22 17:01 07/11/22 17:01 07/11/22 17:15 Temperature Pulse Rate 70 68 Pulse Rate [Left Brachial] Respiratory Rate Blood Pressure 156/95 Blood Pressure [Left Arm] Blood Pressure [Right Arm] O2 Sat by Pulse Oximetry 97 96 Oxygen Delivery Method Oxygen Flow Rate FIO2% 07/11/22 17:53 07/11/22 17:54 07/11/22 17:54 Temperature Pulse Rate 64 61 Pulse Rate [Left Brachial] Respiratory Rate 23 12 Blood Pressure 190/88 Blood Pressure [Left Arm] Blood Pressure [Right Arm] O2 Sat by Pulse Oximetry 96 97 Oxygen Delivery Method Oxygen Flow Rate FIO2% 07/11/22 18:00 07/11/22 18:01 07/11/22 18:01 Temperature Pulse Rate 64 65 Pulse Rate [Left Brachial] Respiratory Rate 24 24 Blood Pressure 172/80 Blood Pressure [Left Arm] Blood Pressure [Right Arm] O2 Sat by Pulse Oximetry 97 97 Oxygen Delivery Method Oxygen Flow Rate FIO2% 07/11/22 18:15 07/11/22 18:30 07/11/22 18:31 Temperature Pulse Rate 65 62 Pulse Rate [Left Brachial] Respiratory Rate 19 18 Blood Pressure 136/62 Blood Pressure [Left Arm] Blood Pressure [Right Arm] O2 Sat by Pulse Oximetry 95 Oxygen Delivery Method Oxygen Flow Rate FIO2% 07/11/22 18:31 07/11/22 18:45 07/11/22 19:00 Temperature Pulse Rate 60 64 65 Pulse Rate [Left Brachial] Respiratory Rate 20 21 44 H Blood Pressure Blood Pressure [Left Arm] Blood Pressure [Right Arm] O2 Sat by Pulse Oximetry 93 L 94 L Oxygen Delivery Method Oxygen Flow Rate FIO2% 07/11/22 19:01 07/11/22 19:01 07/11/22 19:15 Temperature Pulse Rate 61 62 Pulse Rate [Left Brachial] Respiratory Rate 39 H 34 H Blood Pressure 159/67 Blood Pressure [Left Arm] Blood Pressure [Right Arm] O2 Sat by Pulse Oximetry 93 L 95 Oxygen Delivery Method Oxygen Flow Rate FIO2% 07/11/22 19:30 07/11/22 21:00 07/11/22 19:31 Temperature Pulse Rate 60 Pulse Rate [Left Brachial] Respiratory Rate 19 Blood Pressure 156/70 Blood Pressure [Left Arm] Blood Pressure [Right Arm] O2 Sat by Pulse Oximetry 95 95 Oxygen Delivery Method Oxygen Flow Rate FIO2% 07/11/22 19:31 07/11/22 19:45 07/11/22 20:00 Temperature Pulse Rate 61 61 61 Pulse Rate [Left Brachial] Respiratory Rate 22 47 H 17 Blood Pressure Blood Pressure [Left Arm] Blood Pressure [Right Arm] O2 Sat by Pulse Oximetry 95 96 96 Oxygen Delivery Method Oxygen Flow Rate FIO2% 07/11/22 20:01 07/11/22 20:01 07/11/22 20:15 Temperature Pulse Rate 63 59 L Pulse Rate [Left Brachial] Respiratory Rate 19 20 Blood Pressure 159/94 Blood Pressure [Left Arm] Blood Pressure [Right Arm] O2 Sat by Pulse Oximetry 95 93 L Oxygen Delivery Method Oxygen Flow Rate FIO2% 07/11/22 20:30 07/11/22 20:31 07/11/22 20:31 Temperature Pulse Rate 60 60 Pulse Rate [Left Brachial] Respiratory Rate 18 20 Blood Pressure 158/74 Blood Pressure [Left Arm] Blood Pressure [Right Arm] O2 Sat by Pulse Oximetry 93 L 94 L Oxygen Delivery Method Oxygen Flow Rate FIO2% 07/11/22 20:45 07/11/22 20:00 07/11/22 21:50 Temperature 97.7 F Pulse Rate 56 L Pulse Rate [Left Brachial] 57 L Respiratory Rate 22 20 Blood Pressure Blood Pressure [Left Arm] 149/78 Blood Pressure [Right Arm] O2 Sat by Pulse Oximetry 89 L 94 L Oxygen Delivery Method Room Air Nasal Cannula Oxygen Flow Rate 2 FIO2% 07/12/22 00:00 07/12/22 04:00 07/12/22 09:25 Temperature 97.8 F 97.6 F Pulse Rate Pulse Rate [Left Brachial] 66 60 Respiratory Rate 20 18 Blood Pressure Blood Pressure [Left Arm] 138/63 135/63 Blood Pressure [Right Arm] O2 Sat by Pulse Oximetry 96 98 Oxygen Delivery Method Room Air Room Air Room Air Oxygen Flow Rate 2 FIO2% 28 07/12/22 08:00 07/12/22 07:00 07/12/22 12:00 Temperature 97.4 F L 97.9 F Pulse Rate Pulse Rate [Left Brachial] 57 L 60 Respiratory Rate 20 20 Blood Pressure Blood Pressure [Left Arm] 134/71 140/81 Blood Pressure [Right Arm] O2 Sat by Pulse Oximetry 100 97 Oxygen Delivery Method Nasal Cannula Nasal Cannula Nasal Cannula Oxygen Flow Rate 2 2 2 FIO2% 07/12/22 16:00 07/12/22 18:00 07/12/22 19:00 Temperature 98.1 F Pulse Rate Pulse Rate [Left Brachial] 60 Respiratory Rate 20 Blood Pressure Blood Pressure [Left Arm] 172/82 202/104 177/79 Blood Pressure [Right Arm] O2 Sat by Pulse Oximetry 98 Oxygen Delivery Method Nasal Cannula Oxygen Flow Rate 2 FIO2% 07/12/22 20:42 07/12/22 19:00 07/12/22 20:00 Temperature 98.7 F Pulse Rate Pulse Rate [Left Brachial] 115 H Respiratory Rate 20 Blood Pressure Blood Pressure [Left Arm] Blood Pressure [Right Arm] 173/74 O2 Sat by Pulse Oximetry 100 Oxygen Delivery Method Nasal Cannula Nasal Cannula Nasal Cannula Oxygen Flow Rate 2 2 2 FIO2% 28 07/12/22 23:31 07/13/22 04:00 07/13/22 07:00 Temperature 97.6 F 97.7 F Pulse Rate Pulse Rate [Left Brachial] 55 L 54 L Respiratory Rate 20 20 Blood Pressure Blood Pressure [Left Arm] 129/63 Blood Pressure [Right Arm] 176/77 O2 Sat by Pulse Oximetry 99 95 Oxygen Delivery Method Nasal Cannula Nasal Cannula Nasal Cannula Oxygen Flow Rate 2 2 2 FIO2% 07/13/22 09:37 07/13/22 08:00 07/13/22 12:00 Temperature 97.8 F 98.0 F Pulse Rate Pulse Rate [Left Brachial] 58 L 60 Respiratory Rate 18 20 Blood Pressure Blood Pressure [Left Arm] Blood Pressure [Right Arm] 160/70 179/70 O2 Sat by Pulse Oximetry 98 96 Oxygen Delivery Method Room Air Nasal Cannula Nasal Cannula Oxygen Flow Rate 2 2 FIO2% 07/13/22 16:00 07/13/22 17:18 07/13/22 17:19 Temperature 97.9 F Pulse Rate Pulse Rate [Left Brachial] 66 Respiratory Rate 18 Blood Pressure Blood Pressure [Left Arm] Blood Pressure [Right Arm] 193/91 187/89 179/76 O2 Sat by Pulse Oximetry 96 Oxygen Delivery Method Nasal Cannula Oxygen Flow Rate 2 FIO2% 07/13/22 18:26 07/13/22 19:35 07/13/22 19:00 Temperature Pulse Rate Pulse Rate [Left Brachial] Respiratory Rate Blood Pressure Blood Pressure [Left Arm] Blood Pressure [Right Arm] 188/79 170/59 O2 Sat by Pulse Oximetry Oxygen Delivery Method Room Air Oxygen Flow Rate FIO2% 07/13/22 20:00 07/13/22 21:52 07/13/22 23:50 Temperature 98.3 F 97.9 F Pulse Rate Pulse Rate [Left Brachial] 63 59 L Respiratory Rate 20 18 Blood Pressure Blood Pressure [Left Arm] 197/86 160/70 155/65 Blood Pressure [Right Arm] O2 Sat by Pulse Oximetry 95 98 Oxygen Delivery Method Room Air Room Air Oxygen Flow Rate FIO2% 07/13/22 21:00 07/14/22 04:00 07/14/22 08:47 Temperature 97.7 F Pulse Rate Pulse Rate [Left Brachial] 66 Respiratory Rate 18 Blood Pressure Blood Pressure [Left Arm] 155/78 Blood Pressure [Right Arm] O2 Sat by Pulse Oximetry 97 Oxygen Delivery Method Room Air Room Air Room Air Oxygen Flow Rate FIO2% 07/14/22 08:00 07/14/22 07:00 07/14/22 12:00 Temperature 99.6 F 98.3 F Pulse Rate Pulse Rate [Left Brachial] 76 59 L Respiratory Rate 20 18 Blood Pressure Blood Pressure [Left Arm] 164/72 168/73 Blood Pressure [Right Arm] O2 Sat by Pulse Oximetry 98 96 Oxygen Delivery Method Room Air Room Air Room Air Oxygen Flow Rate FIO2% 07/14/22 14:31 07/14/22 14:31 07/14/22 14:35 Temperature Pulse Rate 59 L Pulse Rate [Left Brachial] Respiratory Rate 22 Blood Pressure 171/87 166/79 Blood Pressure [Left Arm] Blood Pressure [Right Arm] O2 Sat by Pulse Oximetry Oxygen Delivery Method Oxygen Flow Rate FIO2% 07/14/22 14:35 07/14/22 14:45 07/14/22 15:00 Temperature Pulse Rate 59 L 59 L Pulse Rate [Left Brachial] Respiratory Rate 24 33 H Blood Pressure 195/84 Blood Pressure [Left Arm] Blood Pressure [Right Arm] O2 Sat by Pulse Oximetry 94 L 93 L Oxygen Delivery Method Oxygen Flow Rate FIO2% 07/14/22 15:00 Temperature Pulse Rate 61 Pulse Rate [Left Brachial] Respiratory Rate 29 H Blood Pressure Blood Pressure [Left Arm] Blood Pressure [Right Arm] O2 Sat by Pulse Oximetry 95 Oxygen Delivery Method Oxygen Flow Rate FIO2% Labs: Laboratory Last Values WBC 7.1 X10^3/uL (3.6-10.0) 07/14/22 05:40 RBC 4.05 X10^6/uL (3.5-5.4) 07/14/22 05:40 Hgb 11.7 g/dL (12.0-16.0) L 07/14/22 05:40 Hct 35.2 % (36.0-47.0) L 07/14/22 05:40 MCV 87.1 fL (80.0-100.0) 07/14/22 05:40 MCH 28.9 pg (27.0-34.0) 07/14/22 05:40 MCHC 33.1 g/dL (33.0-35.0) 07/14/22 05:40 RDW 18.2 % (11.6-16.5) H 07/14/22 05:40 Plt Count 224 X10^3/uL (150.0-450.0) 07/14/22 14:18 MPV 7.7 fL (7.4-11.0) 07/14/22 05:40 Neut % (Auto) 69.8 % (42.0-75.0) 07/14/22 05:40 Lymph % (Auto) 22.3 % (21.0-51.0) 07/14/22 05:40 [place] % (Auto) 6.8 % (0.0-13.0) 07/14/22 05:40 Eos % (Auto) 0.8 % (0.9-2.9) L 07/14/22 05:40 Baso % (Auto) 0.3 % (0.2-1.0) 07/14/22 05:40 Neut # (Auto) 5.0 x10^3/uL (2.2-4.8) H 07/14/22 05:40 Lymph # (Auto) 1.6 X10^3/uL (1.3-2.9) 07/14/22 05:40 [place] # (Auto) 0.5 x10^3/uL (0.3-0.8) 07/14/22 05:40 Eos # (Auto) 0.1 x10^3/uL (0.0-0.2) 07/14/22 05:40 Baso # (Auto) 0.0 X10^3/uL (0.0-0.1) 07/14/22 05:40 Absolute Nucleated RBC 0.0 /100WBC 07/14/22 05:40 PT 14.8 SECONDS (11.8-14.3) 07/14/22 14:18 INR Target Range - 07/14/22 14:18 INR 1.20 (0.8-1.3) 07/14/22 14:18 APTT 41.1 SECONDS (22.9-36.5) H 07/14/22 14:18 PTT Comment - 07/14/22 14:18 D-Dimer 0.55 ug/ml (0.0-0.57) 07/11/22 11:49 Sodium 140 mmol/L (136-145) 07/14/22 05:40 Corrected Sodium TNP 07/14/22 05:40 Potassium 4.2 mmol/L (3.5-5.1) 07/14/22 05:40 Chloride 105 mmol/L (98-107) 07/14/22 05:40 Carbon Dioxide 27.8 mmol/L (21-32) 07/14/22 05:40 BUN 14 mg/dL (7-18) 07/14/22 05:40 Creatinine 0.78 mg/dL (0.55-1.02) 07/14/22 05:40 Est GFR (MDRD) Af Amer > 60 (>60) 07/14/22 05:40 Est GFR (MDRD) Non-Af > 60 (>60) 07/14/22 05:40 Glucose 88 mg/dL (65-99) 07/14/22 05:40 Calcium 8.0 mg/dL (8.5-10.1) L 07/14/22 05:40 Corrected Calcium 8.6 mg/dL (8.5-10.1) 07/14/22 05:40 Magnesium 1.8 mg/dL (1.7-2.9) 07/14/22 05:40 Total Bilirubin 0.50 mg/dL (0.2-1.0) 07/14/22 05:40 AST 13 Units/L (15-37) L 07/14/22 05:40 ALT 14 Units/L (12-78) 07/14/22 05:40 Alkaline Phosphatase 78 Units/L (46-116) 07/14/22 05:40 Creatine Kinase 60 Units/L (26-192) 07/14/22 05:40 Troponin I High Sens 79.1 ng/L (4.0-60.0) H* 07/14/22 12:38 Total Protein 7.5 g/dL (6.4-8.2) 07/14/22 05:40 Albumin 3.2 g/dL (3.4-5.0) L 07/14/22 05:40 Globulin 4.3 g/dL (2.5-4.5) 07/14/22 05:40 Albumin/Globulin Ratio 0.7 Ratio (1.1-2.1) L 07/14/22 05:40 Triglycerides 157 mg/dL (0-150) H 07/13/22 05:17 Cholesterol 124 mg/dL (0-200) 07/13/22 05:17 LDL Cholesterol, Calc 62 mg/dL (0-100) 07/13/22 05:17 HDL Cholesterol 31 mg/dL (40-60) L 07/13/22 05:17 Cholesterol/HDL Ratio 4.0 (0.0-5.0) 07/13/22 05:17 Free T4 1.00 ng/dL (0.76-1.46) 07/12/22 04:57 TSH 3rd Generation 3.225 uIU/mL (0.358-3.74) 07/12/22 04:57 Specimen Type Clean catch urine 07/11/22 11:05 Urine Color Yellow (YELLOW) 07/11/22 11:05 Urine Appearance Clear (CLEAR) 07/11/22 11:05 Urine pH 7.0 (5.0 - 8.0) 07/11/22 11:05 Ur Specific [place] 1.010 (1.000-1.030) 07/11/22 11:05 Urine Protein Negative (NEGATIVE) 07/11/22 11:05 Urine Glucose (UA) Negative (NEGATIVE) 07/11/22 11:05 Urine Ketones Negative (NEGATIVE) 07/11/22 11:05 Urine Blood Negative (NEGATIVE) 07/11/22 11:05 Urine Nitrite Negative (NEGATIVE) 07/11/22 11:05 Urine Bilirubin Negative (NEGATIVE) 07/11/22 11:05 Urine Urobilinogen Normal (NORMAL) 07/11/22 11:05 Ur Leukocyte Esterase 2+ (NEGATIVE) 07/11/22 11:05 Urine RBC 0-2 /HPF (0-3) 07/11/22 11:05 Urine WBC 3-5 /HPF (0-5) 07/11/22 11:05 Ur Squamous Epith Cells Rare /HPF (NEGATIVE) 07/11/22 11:05 Urine Bacteria Trace /HPF (NEGATIVE) 07/11/22 11:05 Ur Culture Indicated? No/not indicated 07/11/22 11:05 SARS-CoV-2 (PCR) Negative (NEGATIVE) 07/11/22 17:51 Influenza Type A (PCR) Negative (NEGATIVE) 07/11/22 17:51 Influenza Type B (PCR) Negative (NEGATIVE) 07/11/22 17:51 RSV (PCR) Negative (NEGATIVE) 07/11/22 17:51 Reason For Visit: ELEVATED TROPONIN,A-FIB,V-TACH,FAILED OUTPATIENT Discharge Date Discharge Date: 07/14/22 Discharge Diagnosis All Active Problems (Updated 07/12/22 @ 14:49 by HOMERO FUNEZ) Acute UTI (Acute) Severe uncontrolled hypertension (Acute) A-fib (Acute) Hypokalemia (Acute) D-dimer, elevated (Acute) Fatigue (Acute) Hypertension (Acute) Atrial fibrillation with rapid ventricular response (Acute) UTI (urinary tract infection) (Acute) Right flank pain (Acute) Elevated troponin (Acute) Atrial fibrillation, new onset (Acute) Generalized weakness (Acute) Abnormal cardiac enzyme level (Acute) Plan of Treatment: Continue with present treatment and follow up plan. Pt is to keep follow up appointment as instructed and take medications as ordered. Discharge Medications Discharge Medications: amoxicillin Allergy (Verified 07/11/22 10:51) dicyclomine [From Bentyl] Allergy (Verified 07/11/22 10:51) indomethacin [From Indocin] Allergy (Verified 07/11/22 10:51) ketorolac [From Toradol] Allergy (Verified 07/11/22 10:51) Discharge Disposition Discharge Disposition: TRANSFER TO [facility] IN [place], [place] Discharge Condition: STABLE Discharge Plan Discharge Plan Hospital Course: PT IS 67 YEAR OLD FEMALE PAST MEDICAL HISTORY OF HYPERTENSION, ANXIETY, ADMITTED FOR NEW ONSET ATRIAL FIBRILLATION WITH RVR. HER ATRIAL FIBRILLATION SPONTANEOUS CONVERTED BACK TO SINUS RHYTHM WHILE INPATIENT. HOWEVER, THIS MORNING SHE HAD EPISODE OF SHARP CHEST PAIN ALONG WITH FEW SECONDS OF VTACH THAT WAS MONITORED ON TELEMETRY THAT SPONTANEOUSLY RESOLVED. CARDIAC ENZYMES TROPONIN WAS ELEVATED AT 77 AND REPEAT SLIGHTLY TRENDING UP TO 79. PT WAS STARTED ON HEPARIN GTT. SHE CONTINUES TO COMPLAIN OF INTERMITTENT CHEST PAIN. DUE TO ANGINA AND NOW NSTEMI, PT WILL BE TRANSFERRED TO [facility] FOR HIGHER LEVEL CARE AND FURTHER CARDIAC EVALUATION AND WORKUP. Labs:Wbc 7.2, Hgb 11.7, Plt 201, Na 140, K 4.2, Creatinine 0.78, Glucose 88, Echo taken, read pending. Time spent on clinical assessment, reviewing labs and imaging, decision making, and documentation greater than 45 minutes. Patient Disposition: XFER [id number] HOSP Condition: Stable Health Concerns: Post Hospitalization: new medications and changes needed to prevent readmission or further decline. Pt educated and given instructions on all concerns. Plan of Treatment: Continue with present treatment and follow up plan. Pt is to keep follow up appointment as instructed and take medications as ordered. Prescriptions: No Action losartan 100 mg Tablet 100 mg PO DAILY lorazepam 0.5 mg Tablet 0.5 mg PO BID PRN (Reason: Anxiety) hydralazine 50 mg Tablet 50 mg PO BID guanfacine 2 mg Tablet 1 mg PO DAILY Rx Instructions: IN AM carvedilol phosphate [Coreg CR] 10 mg Capsule, Er Multiphase 24 Hr 10 mg PO QAM Qty: 30 0RF Rx Instructions: must administer with a meal/food Orders to Discharge Patient Discharge Orders: Discharge by Transfer to Outside Facility (Routine); Ordered 07/14/22 Ordered By: Dax So Follow ups/Referrals Follow ups/Referrals: JARVIS FERNANDES [Primary Care Provider] - 3 days Instructions Stand Alone Forms: Excuse From Work or School, Precautions for COVID19, [facility], Patient Portal, Social Distancing
[2022-07-14 16:34] VITALS: BP 178/77
[2022-07-14] MEDS ORDERED: ATIVAN TAB 0.5 MG PO SCH (21:00)
== END 2022-07-14 16:50 | disposition short-term general hospital (02) | DRG 310 ==
LOC: MED/SURG 10:46 → ER 10:46 → MED/SURG 20:50 → ICU 07-14 14:10
PROVIDERS: ADMIT Internal Medicine; ATTEND Family Medicine
DX: R77.8 Other specified abnormalities of plasma proteins; F41.8 Other specified anxiety disorders; I48.0 Paroxysmal atrial fibrillation; I10 Essential (primary) hypertension; R94.31 Abnormal electrocardiogram [ECG] [EKG]; Z72.0 Tobacco use; Z20.822 Contact with and (suspected) exposure to COVID-19; R79.1 Abnormal coagulation profile